=== PATIENT | male | born 1945 | race Hispanic/Latino ===

== ENCOUNTER 2017-11-29 06:04 | Day surgery (SDC) | payer BC ==
[2017-11-26 11:57] VITALS: BP 134/69
[2017-11-26 12:02] LABS: BASOPHILS % (AUTO) 0.5 % (0.0-5.0); EOSINOPHILS % (AUTO) 1.5 % (0.0-8.0); HEMATOCRIT 43.5 % (42-54); LYMPHOCYTES % (AUTO) 11.8 % (21.0-51.0); MEAN CORPUSCULAR HGB CONC 33.7 g/dL (32.0-36.0); MEAN CORPUSCULAR VOLUME 86.3 fL (79-99); MONOCYTES % (AUTO) 9.8 % (3.0-13.0); NEUTROPHILS % (AUTO) 76.4 % (40.0-77.0); PLATELET COUNT (AUTO) 200 K/uL (130-400); RED BLOOD CELL COUNT(AUTO) 5.04 MIL/uL (4.50-6.20); RED CELL DISTRIBUTION WIDTH 13.9 % (11.0-15.5); WHITE BLOOD COUNT (AUTO) 13.9 K/uL (4.8-10.8)
[2017-11-26 12:03] LABS: APPEARANCE,URINE Clear (CLEAR); BILIRUBIN,URINE Negative (NEGATIVE); COLOR,URINE Yellow (YELLOW); GLUCOSE, URINE (UA) Negative (NEGATIVE); KETONES,URINE Negative (NEGATIVE); LEUKOCYTE ESTERASE ,URINE Negative (NEGATIVE); NITRATE,URINE Negative (NEGATIVE); OCCULT BLOOD,URINE Negative (NEGATIVE); PH,URINE 6.5 (5.0-8.0); PROTEIN,URINE Negative (NEGATIVE)
[2017-11-26 12:07] LABS: POTASSIUM 3.6 mmol/L (3.5-5.1)
[2017-11-26 12:11] LABS: INR 1.02 (0.85-1.15); PARTIAL THROMBOPLASTIN TIME 24.9 SEC (26.3-35.5); PROTHROMBIN TIME 10.7 SEC (9.6-11.6)
[~2017-11-29] VITALS: Ht 167.6 cm; Wt 77.3 kg
[2017-11-29] VITALS (17 sets, daily range): BP systolic 114–173; BP diastolic 7–91
[2017-11-29] MEDS: CEFTRIAXONE SODIUM 1 GM IVP SCH ×2 (05:00→08:40)
[2017-11-29] MEDS: GENTAMICIN 80 MG/NS 100 ML PB 100 ML IV SCH ×2 (05:00→08:24)
[~2017-11-29 06:04] MED LIST: AUD IH; FINA5TAB41 PO; LOSA50TA37 PO; MONT10TA24 PO; MULT-1296 PO; TAMS-1 PO
[2017-11-29] MEDS ORDERED: PROPOFOL 10 MG/ML 20ML VIAL IV ONE (07:26)
[2017-11-29] MEDS ORDERED: MIDAZOLAM HCL 1 MG/ML 2ML VIAL ONE (07:28)
[2017-11-29] MEDS ORDERED: FENTANYL CITRATE PF 50 MCG/1 ML 5ML AMP IV ONE (07:34)
[2017-11-29] MEDS ORDERED: LACTATED RINGERS 1000ML 1,000 ML IV ONE (08:06)
[2017-11-29] MEDS ORDERED: ONDANSETRON HCL 4 MG/2 ML VIAL ONE (09:01)
[2017-11-29] MEDS ORDERED: EPHEDRINE SULFATE 50 MG/ML AMPULE ONE (09:01)
[2017-11-29] MEDS ORDERED: DEXAMETHASONE SOD PHOSPHATE 10MG/ML 1ML VIAL ONE (09:01)
[2017-11-29] MEDS ORDERED: ROCURONIUM BROMIDE 10MG/1ML 5ML VL ONE (09:01)
== END 2017-11-29 11:54 | disposition home or self-care (01) ==
LOC: DAH 06:04
PROVIDERS: ATTEND Urology
DX: N40.1 Benign prostatic hyperplasia with lower urinary tract symptoms (principal); I10 Essential (primary) hypertension; J45.909 Unspecified asthma, uncomplicated
CPT/HCPCS: 36415; 52648; 71045; 80048; 81003; 85025; 85610; 85730; 87088; 93005; A4218; A4354; A4358; A4600; J0696; J1100; J1580; J2250; J2405; J2704; J3010; J3490 ×2; J7120 ×2